=== PATIENT | male | born 1990 | race African-American/Black ===

== ENCOUNTER 2016-08-26 14:26 | Observation (INO) | payer SELFPAY ==
[~2016-08-26] VITALS: Ht 172.7 cm; Wt 73.0 kg
[2016-08-26] MEDS ORDERED: SODIUM CHLOR 0.9% 1000 ML INJ 1,000 ML IV SCH (14:35)
[2016-08-26] MEDS ORDERED: ONDANSETRON HCL 4 MG/2 ML VIAL ONE (14:35)
[2016-08-26] MEDS ORDERED: ONDANSETRON HCL 4 MG/2 ML VIAL IVP ONE (14:45)
[2016-08-26 15:05] VITALS: BP 121/65; PULSE 77; RESP 12; O2SAT 98
--- NOTE | 2016-08-26 15:09 | PD ---
HPI Chief Complaint: OD/ Ingestion Time Seen by Provider: 15:04 Travel History International Travel<30 days: No Contact w/Intl Traveler<30days: No Traveled to known affect area: No History of Present Illness HPI 25-year-old male that presents to the ED for evaluation of possible OD. Patient has a chronic history of bipolar disorder. Per patient and Moy act patient apparently got on an argument with father which escalated to the point where he did not want to leave anymore and he took 10 sertraline, 10 trazodone and 10 tramadol to end his life. Per patient he does have a history of bipolar disorder and has a history depression with suicidal attempts in the past. Per patient she is compliant with his medications. Per patient although he feels right now is feeling dizzy and has some nausea and vomiting. Patient was vomiting when I went to evaluate the patient. Patient has never been here in this facility before for something like this. He denies any alcohol or any other drug abuse. He states having suicidal ideation and depression. Denies any chest pain or shortness of breath. Ingestion occurred someone around 10- 11. He denies any allergies to medication. Police was contacted and they Moy acted the patient. Symptoms are severe. Nothing makes the symptoms better or worse. PFSH Social History Alcohol Use: Yes Tobacco Use: Yes Substance Use: Yes Allergies-Medications (Allergen,Severity, Reaction): Coded Allergies: No Known Allergies (Unverified , 08/26/16) Reported Meds & Prescriptions Reported Meds & Active Scripts Active No Active Prescriptions or Reported Medications Review of Systems General / Constitutional: No: Fever, Chills, Weight Gain, Weight Loss, Other Eyes: No: Diploplia, Blurred Vision, Photophobia, Drainage, Redness, Foreign Body Sensation, Pain, Tearing, Blind Spots, Visual changes, Blindness, Other HENT: No: Headaches, Vertigo, Lightheadedness, Sore Throat, Rhinitis, Rhinorrhea, Congestion, Nosebleed, Neck Stiffness, Neck Pain, Masses, Gingival Bleeding, Dental Difficulties, Ear Discharge, Earache, Other Cardiovascular: No: Chest Pain or Discomfort, Palpitations, Irregular Rhythm, Tachycardia, Diaphoresis, Syncope, Dyspnea on exertion, Varicosities, Edema, Cyanosis, Varicosities, Phlebitis, Claudication, Other Respiratory: No: Cough, Shortness of Breath, Wheezing, Sneezing, Orthopnea, Hemoptysis, Stridor, Night Sweats, Pleuritic Pain, Other Gastrointestinal: Positive: Nausea, Vomiting, No: Diarrhea, Abdominal Pain, Hematemesis, Hematochezia, Constipation, Changes in Bowel Habits, Indigestion, Dysphagia, Loss of Appetite, Other Genitourinary: No: Urgency, Frequency, Dysuria, Nocturia, Hematuria, Decreased Urinary Output, Oliguria, Hesitancy, Dribbling, Incontinence, Pelvic Pain, Flank Pain, Dyspareunia, Discharge, Dysmenorrhea, Menorrhagia, Metorrhagia, Vaginal Bleeding, Other Musculoskeletal: No: Myalgias, Arthralgias, Limited ROM, Weakness, Cramping, Edema, Pain, Atrophy, Other Skin: No Rash, No Itching, No Dryness, No Lumps, No Hives, No Change in Pigmentation, No Change in nails, No Alopecia, No Lesions, No Breast Lumps, No Breast Tenderness, No Breast Swelling, No Other Neurologic: Positive: Dizziness, No: Weakness, Syncope, Focal Abnormalities, Coordination Problem, Tremor, Ataxia, Headache, Change in Mentation, Slurred Speech, Paresthesia, Incontinence, Seizures, Sensory Disturbance, Other Psychiatric: Positive: Anxiety, Depression, Suicidal Ideations, Mood Disorder, Substance Abuse, No: Disorder of Thought, Homicidal Ideation, Other Endocrine: No: Heat Intolerance, Cold Intolerance, Polyuria, Polydipsia, Other Hematologic/Lymphatic: No: Easy Bruising, Lymph Node Enlargement, Other Physical Exam Narrative GENERAL: SKIN: Warm and dry. HEAD: Atraumatic. Normocephalic. EYES: Pupils equal and round. No scleral icterus. No injection or drainage. ENT: No nasal bleeding or discharge. Mucous membranes pink and moist. Tongue is midline. No uvula deviation. NECK: Trachea midline. No JVD. CARDIOVASCULAR: Regular rate and rhythm. No murmurs, S3, S4. RESPIRATORY: No accessory muscle use. Clear to auscultation. Breath sounds equal bilaterally. GASTROINTESTINAL: Abdomen soft, non-tender, nondistended. Hepatic and splenic margins not palpable. MUSCULOSKELETAL: Extremities without clubbing, cyanosis, or edema. No obvious deformities. Full range of motion of the upper and lower extremities bilaterally. 2+ pulses bilaterally. NEUROLOGICAL: Awake and alert. No obvious cranial nerve deficits. Motor grossly within normal limits. Five out of 5 muscle strength in the arms and legs. Normal speech. PSYCHIATRIC: Anxious and depressed mood and affect; insight and judgment questionable Data Data Last Documented VS Vital Signs Date Time Temp Pulse Resp B/P Pulse Ox O2 Delivery O2 Flow Rate FiO2 08/26/16 16:00 87 16 126/65 98 Nasal Cannula 2 08/26/16 15:10 98.5 Orders Ondansetron Inj (Zofran Inj) (08/26/16 14:35) Electrocardiogram (08/26/16 14:35) Complete Blood Count With Diff (08/26/16 14:35) Comprehensive Metabolic Panel (08/26/16 14:35) Prothrombin Time / Inr (Pt) (08/26/16 14:35) Act Partial Throm Time (Ptt) (08/26/16 14:35) Urinalysis - C+S If Indicated (08/26/16 14:35) Blood Glucose (08/26/16 14:35) Iv Access Insert/Monitor (08/26/16 14:35) Ecg Monitoring (08/26/16 14:35) Oximetry (08/26/16 14:35) Ondansetron Inj (Zofran Inj) (08/26/16 14:45) Call Poison Control (08/26/16 14:35) Drug Screen, Random Urine (08/26/16 14:35) Alcohol (Ethanol) (08/26/16 14:35) Salicylates (Aspirin) (08/26/16 14:35) Tylenol (Acetaminophen) (08/26/16 14:35) Sodium Chlor 0.9% 1000 Ml Inj (Ns 1000 M (08/26/16 14:35) ^ Sitter (08/26/16 15:02) Electrocardiogram (08/26/16 16:40) Urine Culture (08/26/16 16:55) Labs Laboratory Tests Test 08/26/16 08/26/16 15:00 16:55 White Blood Count 10.1 TH/MM3 Red Blood Count 6.56 MIL/MM3 Hemoglobin 15.2 GM/DL Hematocrit 46.5 % Mean Corpuscular Volume 70.8 FL Mean Corpuscular Hemoglobin 23.1 PG Mean Corpuscular Hemoglobin 32.7 % Concent Red Cell Distribution Width 14.3 % Platelet Count 94 TH/MM3 Mean Platelet Volume 10.7 FL Neutrophils (%) (Auto) 80.5 % Lymphocytes (%) (Auto) 12.2 % Monocytes (%) (Auto) 6.8 % Eosinophils (%) (Auto) 0.0 % Basophils (%) (Auto) 0.5 % Neutrophils # (Auto) 8.1 TH/MM3 Lymphocytes # (Auto) 1.2 TH/MM3 Monocytes # (Auto) 0.7 TH/MM3 Eosinophils # (Auto) 0.0 TH/MM3 Basophils # (Auto) 0.0 TH/MM3 CBC Comment AUTO DIFF Differential Comment AUTO DIFF CONFIRMED Platelet Estimate LOW Platelet Morphology Comment GIANT Tear Drop Cells 1+ Ovalocytes 1+ Prothrombin Time 11.6 SEC Prothromb Time International 1.0 RATIO Ratio Activated Partial 22.6 SEC Thromboplast Time Sodium Level 137 MEQ/L Potassium Level 3.8 MEQ/L Chloride Level 101 MEQ/L Carbon Dioxide Level 21.8 MEQ/L Anion Gap 14 MEQ/L Blood Urea Nitrogen 15 MG/DL Creatinine 1.23 MG/DL Estimat Glomerular Filtration 73 ML/MIN Rate Random Glucose 108 MG/DL Calcium Level 9.8 MG/DL Total Bilirubin 3.5 MG/DL Aspartate Amino Transf 29 U/L (AST/SGOT) Alanine Aminotransferase 22 U/L (ALT/SGPT) Alkaline Phosphatase 69 U/L Total Protein 8.6 GM/DL Albumin 5.0 GM/DL Salicylates Level LESS THAN 1.7 MG/DL Acetaminophen Level LESS THAN 2.0 MCG/ML Ethyl Alcohol Level LESS THAN 3 MG/DL Urine Color YELLOW Urine Turbidity CLEAR Urine pH 6.0 Urine Specific [place] 1.031 Urine Protein 30 mg/dL Urine Glucose (UA) NEG mg/dL Urine Ketones 80 mg/dL Urine Occult Blood NEG Urine Nitrite NEG Urine Bilirubin SMALL Urine Urobilinogen 2.0 MG/DL Urine Leukocyte Esterase SMALL Urine WBC 10 /hpf Urine Squamous Epithelial 1 /hpf Cells Urine Hyaline Casts 2 /lpf Urine Mucus FEW /lpf Microscopic Urinalysis Comment CULTURE INDICATED Urine Opiates Screen NEG Urine Barbiturates Screen NEG Urine Amphetamines Screen NEG Urine Benzodiazepines Screen NEG Urine Cocaine Screen NEG Urine Cannabinoids Screen POS MDM Medical Decision Making Medical Screen Exam Complete: Yes Emergency Medical Condition: Yes Medical Record Reviewed: Yes Interpretation(s) CBC & BMP Diagram 08/26/16 15:00 LFTs within normal limits. EKG shows sinus rhythm with no sign of acute ischemia or arrhythmia read by me and attending. Differential Diagnosis Depression versus suicidal ideation versus anxiety versus adjustment disorder versus mood disorder versus bipolar disorder versus schizophrenia versus paranoid disorder versus psychosis versus substance abuse versus alcohol abuse versus alcohol induced psychosis versus homicidality addition versus cutting versus personality disorder versus overdose Narrative Course 25-year-old male that presents to the ED for evaluation of overdose and Moy act. Patient was properly examined and was found to have signs and symptoms consistent with overdose. Patient to 10 tramadol, 10 trazodone, 10 sertraline at the same time an attempt to end his life. Patient was Moy acted by police. At this time labs were ordered. Overdose protocol was started. ED nurse spoke with poison control who recommends at least observation for the next 4-6 hours for seizure monitoring. Case was discussed in my attending Dr. Cochran who agrees with plan and recommends admission for AND psych evaluation will admitted. Patient was given IV fluids and antiemetics here as he was vomiting here in the ED. Sitter was ordered. Labs showed no sign of acute disease. Case was discussed in my attending who agrees admission to medicine as patient will require at least 6 hours of monitoring and cannot be medically clear until then. Case was discussed with Dr. Kwon over the phone who agrees to admission. Procedures EKG Prior to Arrival: No Diagnosis Primary Impression: Drug overdose, multiple drugs Qualified Code: T50.902A - Drug overdose, multiple drugs, intentional self- harm, initial encounter Additional Impressions: Bipolar 1 disorder Suicidal ideation Admitting Information Admitting Physician Requests: Observation Scripts No Active Prescriptions or Reported Meds Peter Gutierrez Aug 26, 2016 15:09
[2016-08-26 15:10] VITALS: TEMP 98.5
[2016-08-26 15:18] LABS: AUTOMATED NEUTROPHIL # 8.1 TH/MM3 (1.8-7.7); BASOPHIL % 0.5 % (0.0-2.0); HEMATOCRIT 46.5 % (39.0-51.0); LYMPH % 12.2 % (9.0-44.0); LYMPHOCYTE # 1.2 TH/MM3 (1.0-4.8); MEAN CELL VOLUME 70.8 FL (80.0-100.0); MEAN CORPUSCULAR HEMOGLOBIN 23.1 PG (27.0-34.0); MEAN CORPUSCULAR HGB CONC 32.7 % (32.0-36.0); MONO % 6.8 % (0.0-8.0); NEUT % 80.5 % (16.0-70.0); PLATELET COUNT 94 TH/MM3 (150-450); RED BLOOD COUNT 6.56 MIL/MM3 (4.50-5.90); RED CELL DISTRIBUTION WIDTH 14.3 % (11.6-17.2); WHITE BLOOD COUNT 10.1 TH/MM3 (4.0-11.0)
[2016-08-26 15:22] LABS: APTT (PATIENT) 22.6 SEC (24.3-30.1); PROTHROMBIN TIME - PATIENT 11.6 SEC (9.8-11.6)
[2016-08-26 15:23] LABS: HEMO FLAGS AUTO DIFF
[2016-08-26 15:39] LABS: ALKALINE PHOSPHATASE 69 U/L (45-117); ALT (GPT) 22 U/L (12-78); TOTAL BILIRUBIN ADULT 3.5 MG/DL (0.2-1.0)
[2016-08-26 15:44] LABS: ANION GAP 14 MEQ/L (5-15); AST (GOT) 29 U/L (15-37); BICARBONATE 21.8 MEQ/L (21.0-32.0); BLOOD UREA NITROGEN 15 MG/DL (7-18); CHLORIDE 101 MEQ/L (98-107); GLOMERULAR FILTRATION RATE 73 ML/MIN (>89); SODIUM (NA) 137 MEQ/L (136-145)
[2016-08-26 15:45] LABS: ACETAMINOPHEN LESS THAN 2.0 MCG/ML (10.0-30.0); POTASSIUM 3.8 MEQ/L (3.5-5.1)
[2016-08-26 16:00] VITALS: BP 126/65; PULSE 87; RESP 16; O2SAT 98
[2016-08-26 16:09] LABS: OVALOCYTES 1+ (NORMAL); PLATELET ESTIMATE SMEAR LOW (NORMAL); PLATELET MORPHOLOGY GIANT (NORMAL); SCAN/DIFF AUTO DIFF CONFIRMED; TEARDROP RBCS 1+ (NORMAL)
[2016-08-26 17:15] LABS: BLOOD, URINE NEG (NEG); COMMENT (UR) CULTURE INDICATED; CULTURE IF INDICATED CULTURE INDICATED; GLUCOSE,URINE NEG (NEG); HYALINE CAST, URINE 2 /lpf (RARE); KETONE, URINE 80 mg/dL (NEG); MUCUS URINE FEW /lpf (OCC); NITRITE,URINE NEG (NEG); SQUAMOUS EPITHELIAL CELL URINE 1 /hpf (0-5); URINE COLOR YELLOW (YELLW/STRAW)
[2016-08-26 17:20] LABS: AMPHETAMINE, URINE NEG (NEG); BARBITURATES, URINE NEG (NEG); COCAINE, URINE NEG (NEG)
--- NOTE | 2016-08-26 17:42 | HHI.HP ---
[facility] Service [facility] Primary Care Physician No Primary Care Physician Admission Diagnosis overdose, Bipolar, BA Diagnoses: Chief Complaint: Drug overdose Travel History International Travel<30 Days: No Contact w/Intl Traveler <30 Da: No Traveled to Known Affected Are: No History of Present Illness This is a pleasant 25 y/o male who came to ER for evaluation of possible drug overdose, he has chronic Bipolar disorder, brought in as Moy act apparently he had an argument with his father then he took 10 sertraline, 10 trazodone and 10 tramadol to end his life. Per patient he does have a history of bipolar disorder and has a history depression with suicidal attempts in the past. Per patient she is compliant with his medications. he felt dizzy, nausea and vomit, ingestion occurred around 10 to 11 am, seen in his bedroom in Emergency room, stable no distress with sitter, as recommended by Poison control he will need to be observed for six hours and consult psychiatry. Past Family Social History Past Medical History Bipolar disorder Past Surgical History No Past Surgical History Reported Medications Reported Meds & Active Scripts Active No Active Prescriptions or Reported Medications Allergies: Coded Allergies: No Known Allergies (Unverified , 08/26/16) Active Ordered Medications Current Medications Medications (Trade) Dose Ordered Sig/Madi Route Start Time Stop Time Status Last Admin (NS 1000 ml Inj) 1,000 ml @ 125 mls/hr Q8H IV 08/26/16 18:00 08/26/16 18:30 (NS Flush) 2 ml UNSCH PRN FLUSH 08/26/16 17:45 (NS Flush) 2 ml BID FLUSH 08/26/16 21:00 (Tylenol) 650 mg Q4H PRN PO 08/26/16 17:45 (Zofran Inj) 4 mg Q6H PRN IVP 08/26/16 17:45 (Dulcolax Supp) 10 mg DAILY PRN [place] 08/26/16 17:45 (Narcan Inj) 0.4 mg UNSCH PRN IV 08/26/16 17:45 Family History Father with hypertension Social History lives with his Father and Father's Girlfriend, Abuse Tobacco, Alcohol and Substance abuse Physical Exam Vital Signs Vital Signs Date Time Temp Pulse Resp B/P Pulse Ox O2 Delivery O2 Flow Rate FiO2 08/26/16 16:00 87 16 126/65 98 Nasal Cannula 2 08/26/16 15:10 98.5 08/26/16 15:05 77 12 121/65 98 Nasal Cannula 2 Physical Exam GENERAL: SKIN: Warm and dry. HEAD: Atraumatic. Normocephalic. EYES: Pupils equal and round. No scleral icterus. No injection or drainage. ENT: No nasal bleeding or discharge. Mucous membranes pink and moist. Tongue is midline. No uvula deviation. NECK: Trachea midline. No JVD. CARDIOVASCULAR: Regular rate and rhythm. No murmurs, S3, S4. RESPIRATORY: No accessory muscle use. Clear to auscultation. Breath sounds equal bilaterally. GASTROINTESTINAL: Abdomen soft, non-tender, nondistended. Hepatic and splenic margins not palpable. MUSCULOSKELETAL: Extremities without clubbing, cyanosis, or edema. No obvious deformities. Full range of motion of the upper and lower extremities bilaterally. 2+ pulses bilaterally. NEUROLOGICAL: Awake and alert. No obvious cranial nerve deficits. Motor grossly within normal limits. Five out of 5 muscle strength in the arms and legs. Normal speech. PSYCHIATRIC: Anxious and depressed mood and affect; insight and judgment questionable Laboratory Laboratory Tests Test 08/26/16 08/26/16 15:00 16:55 White Blood Count 10.1 Red Blood Count 6.56 Hemoglobin 15.2 Hematocrit 46.5 Mean Corpuscular Volume 70.8 Mean Corpuscular Hemoglobin 23.1 Mean Corpuscular Hemoglobin 32.7 Concent Red Cell Distribution Width 14.3 Platelet Count 94 Mean Platelet Volume 10.7 Neutrophils (%) (Auto) 80.5 Lymphocytes (%) (Auto) 12.2 Monocytes (%) (Auto) 6.8 Eosinophils (%) (Auto) 0.0 Basophils (%) (Auto) 0.5 Neutrophils # (Auto) 8.1 Lymphocytes # (Auto) 1.2 Monocytes # (Auto) 0.7 Eosinophils # (Auto) 0.0 Basophils # (Auto) 0.0 CBC Comment AUTO DIFF Differential Comment AUTO DIFF CONFIRMED Platelet Estimate LOW Platelet Morphology Comment GIANT Tear Drop Cells 1+ Ovalocytes 1+ Prothrombin Time 11.6 Prothromb Time International 1.0 Ratio Activated Partial 22.6 Thromboplast Time Sodium Level 137 Potassium Level 3.8 Chloride Level 101 Carbon Dioxide Level 21.8 Anion Gap 14 Blood Urea Nitrogen 15 Creatinine 1.23 Estimat Glomerular Filtration 73 Rate Random Glucose 108 Calcium Level 9.8 Total Bilirubin 3.5 Aspartate Amino Transf 29 (AST/SGOT) Alanine Aminotransferase 22 (ALT/SGPT) Alkaline Phosphatase 69 Total Protein 8.6 Albumin 5.0 Salicylates Level LESS THAN 1.7 Acetaminophen Level LESS THAN 2.0 Ethyl Alcohol Level LESS THAN 3 Urine Color YELLOW Urine Turbidity CLEAR Urine pH 6.0 Urine Specific [place] 1.031 Urine Protein 30 Urine Glucose (UA) NEG Urine Ketones 80 Urine Occult Blood NEG Urine Nitrite NEG Urine Bilirubin SMALL Urine Urobilinogen 2.0 Urine Leukocyte Esterase SMALL Urine WBC 10 Urine Squamous Epithelial 1 Cells Urine Hyaline Casts 2 Urine Mucus FEW Microscopic Urinalysis Comment CULTURE INDICATED Urine Opiates Screen NEG Urine Barbiturates Screen NEG Urine Amphetamines Screen NEG Urine Benzodiazepines Screen NEG Urine Cocaine Screen NEG Urine Cannabinoids Screen POS Date/Time Procedure Status Source Growth 08/26/16 16:55 Urine Culture Received Urine Clean Catch Pending Result Diagram: 08/26/16 1500 08/26/16 1500 Imaging No Imaging studies performed. Assessment and Plan Assessment and Plan Intentional Drug Overdose, LFTs within normal limits, ECG sinus rhythm with no sign of acute ischemia or arrhythmia Patient to 10 tramadol, 10 trazodone, 10 sertraline at the same time an attempt to end his life. Patient was Moy acted by police. poison control who recommends at least observation for the next 4-6 hours for seizure monitoring. consult psychiatry specialist. DVT prophylaxis with SCDs. Code Status Full code Discussed Condition With Patient and Emergency physician Physician Certification 2 Midnight Certification Type: Admission for Inpatient Services Order for Inpatient Services The services are ordered in accordance with Medicare regulations or non- Medicare payer requirements, as applicable. In the case of services not specified as inpatient-only, they are appropriately provided as inpatient services in accordance with the 2-midnight benchmark. Estimated LOS (days): 1 days is the estimated time the patient will need to remain in the hospital, assuming treatment plan goals are met and no additional complications. Post-Hospital Plan: Other acute care hospital Juwan Lafleur MD Aug 26, 2016 17:42
[2016-08-26] MEDS ORDERED: BISACODYL 10 MG SUPP PR PRN (17:45)
[2016-08-26] MEDS ORDERED: ONDANSETRON HCL 4 MG/2 ML VIAL IVP PRN (17:45)
[2016-08-26] MEDS ORDERED: SODIUM CHLORIDE 0.9% FLUSH 5 ML FLUSH FLUSH PRN (17:45)
[2016-08-26] MEDS ORDERED: ACETAMINOPHEN 325 MG TAB PO PRN (17:45)
[2016-08-26] MEDS ORDERED: NALOXONE HCL 0.4 MG/ML AMP IV PRN (17:45)
--- NOTE | 2016-08-26 17:53 | PD ---
Physical Exam Date Seen by Provider: Aug 26, 2016 Time Seen by Provider: 15:30 Narrative I, Dr. Covarrubias, have reviewed the advance practice practitioner's documentation and am in agreement, met with the patient face to face, made the diagnosis, and the medical decision making was done by me. *My assessment and Findings: Patient seen and evaluated with PA, please see previous notes for further details. Patient is here because he had taken an intentional overdose of his psychiatric medication and his father's blood pressure medication. He states he started taking the medications at 1 to 1:30 PM. He states that he is now nauseous, vomiting, not feeling well. On initial evaluation, he appears agitated and restless, diaphoretic, pupils are small, poorly reactive to light bilaterally. His abdomen is soft and benign, nontender to palpation. No focal neurological deficit identified. EKG shows NSR, no ST elevation or depression, and no arrhythmias. No significant T-wave inversions. No QT prolongation or QRS prolongation. Laboratory Tests Test 08/26/16 08/26/16 15:00 16:55 Red Blood Count 6.56 MIL/MM3 (4.50-5.90) Mean Corpuscular Volume 70.8 FL (80.0-100.0) Mean Corpuscular Hemoglobin 23.1 PG (27.0-34.0) Platelet Count 94 TH/MM3 (150-450) Neutrophils (%) (Auto) 80.5 % (16.0-70.0) Neutrophils # (Auto) 8.1 TH/MM3 (1.8-7.7) Platelet Estimate LOW (NORMAL) Platelet Morphology Comment GIANT (NORMAL) Tear Drop Cells 1+ (NORMAL) Ovalocytes 1+ (NORMAL) Activated Partial 22.6 SEC Thromboplast Time (24.3-30.1) Estimat Glomerular Filtration 73 ML/MIN (>89) Rate Random Glucose 108 MG/DL (74-106) Total Bilirubin 3.5 MG/DL (0.2-1.0) Total Protein 8.6 GM/DL (6.4-8.2) Salicylates Level LESS THAN 1.7 MG/DL (2.8-20.0) Acetaminophen Level LESS THAN 2.0 MCG/ML (10.0-30.0) Urine Protein 30 mg/dL (NEG-TRACE) Urine Ketones 80 mg/dL (NEG) Urine Bilirubin SMALL (NEG) Urine Leukocyte Esterase SMALL (NEG) Urine WBC 10 /hpf (0-5) Urine Mucus FEW /lpf (OCC) Urine Cannabinoids Screen POS (NEG) Patient was given IV fluids in the ER anti-medics in the ER. Case had been discussed with poison control center and they recommended seizure precautions and observation and reevaluation. At this point, lab work returns showing that he also has cannabis in his system. Vital signs remained stable in the ER. My plan would be to admit the patient for further observation. Data Data Last Documented VS Vital Signs Date Time Temp Pulse Resp B/P Pulse Ox O2 Delivery O2 Flow Rate FiO2 08/26/16 16:00 87 16 126/65 98 Nasal Cannula 2 08/26/16 15:10 98.5 Orders Ondansetron Inj (Zofran Inj) (08/26/16 14:35) Electrocardiogram (08/26/16 14:35) Complete Blood Count With Diff (08/26/16 14:35) Comprehensive Metabolic Panel (08/26/16 14:35) Prothrombin Time / Inr (Pt) (08/26/16 14:35) Act Partial Throm Time (Ptt) (08/26/16 14:35) Urinalysis - C+S If Indicated (08/26/16 14:35) Blood Glucose (08/26/16 14:35) Iv Access Insert/Monitor (08/26/16 14:35) Ecg Monitoring (08/26/16 14:35) Oximetry (08/26/16 14:35) Ondansetron Inj (Zofran Inj) (08/26/16 14:45) Call Poison Control (08/26/16 14:35) Drug Screen, Random Urine (08/26/16 14:35) Alcohol (Ethanol) (08/26/16 14:35) Salicylates (Aspirin) (08/26/16 14:35) Tylenol (Acetaminophen) (08/26/16 14:35) Sodium Chlor 0.9% 1000 Ml Inj (Ns 1000 M (08/26/16 14:35) ^ Sitter (08/26/16 15:02) Electrocardiogram (08/26/16 16:40) Urine Culture (08/26/16 16:55) Admit Order (Ed Use Only) (08/26/16 17:27) Labs Laboratory Tests Test 08/26/16 08/26/16 15:00 16:55 White Blood Count 10.1 TH/MM3 Red Blood Count 6.56 MIL/MM3 Hemoglobin 15.2 GM/DL Hematocrit 46.5 % Mean Corpuscular Volume 70.8 FL Mean Corpuscular Hemoglobin 23.1 PG Mean Corpuscular Hemoglobin 32.7 % Concent Red Cell Distribution Width 14.3 % Platelet Count 94 TH/MM3 Mean Platelet Volume 10.7 FL Neutrophils (%) (Auto) 80.5 % Lymphocytes (%) (Auto) 12.2 % Monocytes (%) (Auto) 6.8 % Eosinophils (%) (Auto) 0.0 % Basophils (%) (Auto) 0.5 % Neutrophils # (Auto) 8.1 TH/MM3 Lymphocytes # (Auto) 1.2 TH/MM3 Monocytes # (Auto) 0.7 TH/MM3 Eosinophils # (Auto) 0.0 TH/MM3 Basophils # (Auto) 0.0 TH/MM3 CBC Comment AUTO DIFF Differential Comment AUTO DIFF CONFIRMED Platelet Estimate LOW Platelet Morphology Comment GIANT Tear Drop Cells 1+ Ovalocytes 1+ Prothrombin Time 11.6 SEC Prothromb Time International 1.0 RATIO Ratio Activated Partial 22.6 SEC Thromboplast Time Sodium Level 137 MEQ/L Potassium Level 3.8 MEQ/L Chloride Level 101 MEQ/L Carbon Dioxide Level 21.8 MEQ/L Anion Gap 14 MEQ/L Blood Urea Nitrogen 15 MG/DL Creatinine 1.23 MG/DL Estimat Glomerular Filtration 73 ML/MIN Rate Random Glucose 108 MG/DL Calcium Level 9.8 MG/DL Total Bilirubin 3.5 MG/DL Aspartate Amino Transf 29 U/L (AST/SGOT) Alanine Aminotransferase 22 U/L (ALT/SGPT) Alkaline Phosphatase 69 U/L Total Protein 8.6 GM/DL Albumin 5.0 GM/DL Salicylates Level LESS THAN 1.7 MG/DL Acetaminophen Level LESS THAN 2.0 MCG/ML Ethyl Alcohol Level LESS THAN 3 MG/DL Urine Color YELLOW Urine Turbidity CLEAR Urine pH 6.0 Urine Specific [place] 1.031 Urine Protein 30 mg/dL Urine Glucose (UA) NEG mg/dL Urine Ketones 80 mg/dL Urine Occult Blood NEG Urine Nitrite NEG Urine Bilirubin SMALL Urine Urobilinogen 2.0 MG/DL Urine Leukocyte Esterase SMALL Urine WBC 10 /hpf Urine Squamous Epithelial 1 /hpf Cells Urine Hyaline Casts 2 /lpf Urine Mucus FEW /lpf Microscopic Urinalysis Comment CULTURE INDICATED Urine Opiates Screen NEG Urine Barbiturates Screen NEG Urine Amphetamines Screen NEG Urine Benzodiazepines Screen NEG Urine Cocaine Screen NEG Urine Cannabinoids Screen POS MDM Medical Record Reviewed: Yes Supervised Visit with CARLA: Yes Diagnosis Primary Impression: Drug overdose, multiple drugs Qualified Code: T50.902A - Drug overdose, multiple drugs, intentional self- harm, initial encounter Additional Impressions: Bipolar 1 disorder Suicidal ideation Admitting Information Admitting Physician Requests: Admit Scripts No Active Prescriptions or Reported Meds Elizabeth Covarrubias MD Aug 26, 2016 17:53
[2016-08-26 18:30] VITALS: BP 117/70; PULSE 77; RESP 14; O2SAT 100
[2016-08-26] MEDS: SODIUM CHLOR 0.9% 1000 ML INJ 1,000 ML IV SCH (18:30)
[2016-08-26 19:09] VITALS: BP 125/75; PULSE 66; RESP 18; O2SAT 99
[2016-08-26 19:19] LABS: CKMB 1.5 NG/ML (0.5-3.6)
[2016-08-26] MEDS: SODIUM CHLORIDE 0.9% FLUSH 5 ML FLUSH FLUSH SCH (21:00)
[2016-08-26 21:45] VITALS: BP 133/68; PULSE 81; RESP 16; TEMP 96.1; O2SAT 96
[2016-08-27] VITALS (8 sets, daily range): BP systolic 117–148; BP diastolic 61–82; PULSE 61–79; RESP 18–22; TEMP 96.9–98.8; O2SAT 95–98
[2016-08-27 01:04] LABS: CKMB 2.2 NG/ML (0.5-3.6)
[2016-08-27 07:08] LABS: AUTOMATED NEUTROPHIL # 5.3 TH/MM3 (1.8-7.7); BASOPHIL # 0.1 TH/MM3 (0-0.2); BASOPHIL % 0.6 % (0.0-2.0); EOSINOPHIL # 0.2 TH/MM3 (0-0.4); EOSINOPHIL % 2.2 % (0.0-4.0); HEMATOCRIT 41.2 % (39.0-51.0); LYMPHOCYTE # 2.2 TH/MM3 (1.0-4.8); MEAN CELL VOLUME 70.9 FL (80.0-100.0); MEAN CORPUSCULAR HEMOGLOBIN 23.3 PG (27.0-34.0); MEAN CORPUSCULAR HGB CONC 32.9 % (32.0-36.0); NEUT % 62.2 % (16.0-70.0); PLATELET COUNT 88 TH/MM3 (150-450); RED BLOOD COUNT 5.81 MIL/MM3 (4.50-5.90); RED CELL DISTRIBUTION WIDTH 14.2 % (11.6-17.2); WHITE BLOOD COUNT 8.5 TH/MM3 (4.0-11.0)
[2016-08-27 07:10] LABS: HEMO FLAGS AUTO DIFF
[2016-08-27 07:14] LABS: BICARBONATE 25.2 MEQ/L (21.0-32.0); POTASSIUM 3.9 MEQ/L (3.5-5.1); TOTAL BILIRUBIN ADULT 2.3 MG/DL (0.2-1.0)
[2016-08-27 07:23] LABS: CKMB 2.8 NG/ML (0.5-3.6)
--- NOTE | 2016-08-27 08:34 | HHI.PR ---
Subjective Remarks This is a pleasant 25 y/o male who came to ER for evaluation of possible drug overdose, he has chronic Bipolar disorder, brought in as Moy act apparently he had an argument with his father then he took 10 sertraline, 10 trazodone and 10 tramadol to end his life. Per patient he does have a history of bipolar disorder and has a history depression with suicidal attempts in the past. Per patient she is compliant with his medications. he felt dizzy, nausea and vomit, ingestion occurred around 10 to 11 am, seen in his bedroom in Emergency room, stable no distress with sitter, as recommended by Poison control he will need to be observed for six hours and consult psychiatry. Discussed with Psychiatry specialist Doctor Raleigh Madison the patient is stable and he removed the Moy Act and recommend to discharge patient home today. the patient is stable no Nausea, vomit or diarrhea. Objective Vital Signs Date Time Temp Pulse Resp B/P Pulse Ox O2 Delivery O2 Flow Rate FiO2 08/27/16 03:36 98.0 61 22 148/71 97 08/27/16 00:17 97.6 64 20 117/74 97 08/26/16 21:45 96.1 81 16 133/68 96 08/26/16 19:09 66 18 125/75 99 Room Air 08/26/16 18:30 77 14 117/70 100 Room Air 08/26/16 16:00 87 16 126/65 98 Nasal Cannula 2 08/26/16 15:10 98.5 08/26/16 15:05 77 12 121/65 98 Nasal Cannula 2 I/O 08/26/16 08/26/16 08/26/16 08/27/16 08/27/16 08/27/16 07:00 15:00 23:00 07:00 15:00 23:00 Intake Total 240 ml Balance 240 ml Intake Oral 240 ml Result Diagram: 08/27/16 0520 08/27/16 0520 Imaging No Imaging studies performed. Procedures No procedures performed to the patient. Other Results Laboratory Tests Test 08/26/16 08/26/16 08/27/16 15:00 16:55 05:20 Differential Comment AUTO DIFF CONFIRMED Platelet Estimate LOW Platelet Morphology Comment GIANT Tear Drop Cells 1+ Ovalocytes 1+ Prothrombin Time 11.6 SEC Prothromb Time International 1.0 RATIO Ratio Activated Partial 22.6 SEC Thromboplast Time Salicylates Level LESS THAN 1.7 MG/DL Acetaminophen Level LESS THAN 2.0 MCG/ML Ethyl Alcohol Level LESS THAN 3 MG/DL Urine Color YELLOW Urine Turbidity CLEAR Urine pH 6.0 Urine Specific [place] 1.031 Urine Protein 30 mg/dL Urine Glucose (UA) NEG mg/dL Urine Ketones 80 mg/dL Urine Occult Blood NEG Urine Nitrite NEG Urine Bilirubin SMALL Urine Urobilinogen 2.0 MG/DL Urine Leukocyte Esterase SMALL Urine WBC 10 /hpf Urine Squamous Epithelial 1 /hpf Cells Urine Hyaline Casts 2 /lpf Urine Mucus FEW /lpf Microscopic Urinalysis Comment CULTURE INDICATED Urine Opiates Screen NEG Urine Barbiturates Screen NEG Urine Amphetamines Screen NEG Urine Benzodiazepines Screen NEG Urine Cocaine Screen NEG Urine Cannabinoids Screen POS White Blood Count 8.5 TH/MM3 Red Blood Count 5.81 MIL/MM3 Hemoglobin 13.6 GM/DL Hematocrit 41.2 % Mean Corpuscular Volume 70.9 FL Mean Corpuscular Hemoglobin 23.3 PG Mean Corpuscular Hemoglobin 32.9 % Concent Red Cell Distribution Width 14.2 % Platelet Count 88 TH/MM3 Mean Platelet Volume 10.9 FL Neutrophils (%) (Auto) 62.2 % Lymphocytes (%) (Auto) 26.0 % Monocytes (%) (Auto) 9.0 % Eosinophils (%) (Auto) 2.2 % Basophils (%) (Auto) 0.6 % Neutrophils # (Auto) 5.3 TH/MM3 Lymphocytes # (Auto) 2.2 TH/MM3 Monocytes # (Auto) 0.8 TH/MM3 Eosinophils # (Auto) 0.2 TH/MM3 Basophils # (Auto) 0.1 TH/MM3 CBC Comment AUTO DIFF Sodium Level 140 MEQ/L Potassium Level 3.9 MEQ/L Chloride Level 107 MEQ/L Carbon Dioxide Level 25.2 MEQ/L Anion Gap 8 MEQ/L Blood Urea Nitrogen 10 MG/DL Creatinine 0.94 MG/DL Estimat Glomerular Filtration 121 ML/MIN Rate Random Glucose 85 MG/DL Calcium Level 8.3 MG/DL Total Bilirubin 2.3 MG/DL Direct Bilirubin 0.3 MG/DL Indirect Bilirubin 2.0 MG/DL Aspartate Amino Transf 20 U/L (AST/SGOT) Alanine Aminotransferase 18 U/L (ALT/SGPT) Alkaline Phosphatase 53 U/L Total Creatine Kinase 1063 U/L Creatine Kinase MB 2.8 NG/ML Creatine Kinase MB % 0.3 % Troponin I 0.05 NG/ML Total Protein 6.5 GM/DL Albumin 3.8 GM/DL Objective Remarks SKIN: Warm and dry. HEAD: Atraumatic. Normocephalic. EYES: Pupils equal and round. No scleral icterus. No injection or drainage. ENT: No nasal bleeding or discharge. Mucous membranes pink and moist. Tongue is midline. No uvula deviation. NECK: Trachea midline. No JVD. CARDIOVASCULAR: Regular rate and rhythm. No murmurs, S3, S4. RESPIRATORY: No accessory muscle use. Clear to auscultation. Breath sounds equal bilaterally. GASTROINTESTINAL: Abdomen soft, non-tender, nondistended. Hepatic and splenic margins not palpable. MUSCULOSKELETAL: Extremities without clubbing, cyanosis, or edema. No obvious deformities. Full range of motion of the upper and lower extremities bilaterally. 2+ pulses bilaterally. NEUROLOGICAL: Awake and alert. No obvious cranial nerve deficits. Motor grossly within normal limits. Five out of 5 muscle strength in the arms and legs. Normal speech. PSYCHIATRIC: Anxious and depressed mood and affect; insight and judgment questionable Medications and IVs Current Medications Medications (Trade) Dose Ordered Sig/Madi Route Start Time Stop Time Status Last Admin (NS 1000 ml Inj) 1,000 ml @ 125 mls/hr Q8H IV 08/26/16 18:00 08/26/16 18:30 (NS Flush) 2 ml UNSCH PRN FLUSH 08/26/16 17:45 (NS Flush) 2 ml BID FLUSH 08/26/16 21:00 (Tylenol) 650 mg Q4H PRN PO 08/26/16 17:45 (Zofran Inj) 4 mg Q6H PRN IVP 08/26/16 17:45 (Dulcolax Supp) 10 mg DAILY PRN AR 08/26/16 17:45 (Narcan Inj) 0.4 mg UNSCH PRN IV 08/26/16 17:45 A/P Assessment and Plan Intentional Drug Overdose, LFTs within normal limits, ECG sinus rhythm with no sign of acute ischemia or arrhythmia Patient to 10 tramadol, 10 trazodone, 10 sertraline at the same time an attempt to end his life. Patient was Moy acted by police. poison control who recommends at least observation for the next 4-6 hours for seizure monitoring. consult psychiatry specialist. patient stable discussed with doctor Raleigh Madison and he recommends to discharge the patient and follow with Psychiatry specialist. the patient has mild but worsening Creatinine Kinase asked for new follow up if stable will discharge home DVT prophylaxis with SCDs. Code Status Full code Discharge Planning Expected for later today or in am tomorrow Moy act removed by Psychiatry. Juwan Lafleur MD Aug 27, 2016 08:33
[2016-08-27 09:31] LABS: PLATELET ESTIMATE SMEAR LOW (NORMAL); PLATELET MORPHOLOGY ENLARGED (NORMAL); SCAN/DIFF AUTO DIFF CONFIRMED
[2016-08-27 09:32] LABS: OVALOCYTES 1+ (NORMAL)
[2016-08-27] MEDS: SODIUM CHLOR 0.9% 1000 ML INJ 1,000 ML IV SCH ×2 (13:53→18:00)
[2016-08-27] MEDS: SODIUM CHLORIDE 0.9% FLUSH 5 ML FLUSH FLUSH SCH ×2 (13:53→21:00)
--- NOTE | 2016-08-27 14:10 | EKG ---
Date Performed: 08/26/2016 Time Performed: 14:39:43 PTAGE: 25 years EKG: Sinus rhythm NORMAL ECG NO PREVIOUS TRACING DOCTOR: Pardeep Marvin Interpretating Date/Time 08/27/2016 14:08:50
--- NOTE | 2016-08-27 14:10 | EKG ---
Date Performed: 08/26/2016 Time Performed: 17:24:25 PTAGE: 25 years EKG: Sinus rhythm WITH SINUS ARRHYTHMIA NORMAL ECG Compared to PREVIOUS TRACING sinus arrhythmia is new, otherwise no significant change PREVIOUS BRUCE N08/26/2016 14.39 DOCTOR: Pardeep Marvin Interpretating Date/Time 08/27/2016 14:09:06
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
[2016-08-27 15:30] LABS: CKMB 2.3 NG/ML (0.5-3.6)
[2016-08-28 00:13] VITALS: BP 140/63; PULSE 60; RESP 21; TEMP 98.4; O2SAT 99
[2016-08-28] MEDS: SODIUM CHLOR 0.9% 1000 ML INJ 1,000 ML IV SCH ×2 (00:31→09:53)
[2016-08-28 05:13] VITALS: BP 141/60; PULSE 62; RESP 21; TEMP 98.7; O2SAT 98
[2016-08-28 07:26] VITALS: O2SAT 99
--- NOTE | 2016-08-28 08:16 | HHI.PR ---
Subjective Remarks This is a pleasant 25 y/o male who came to ER for evaluation of possible drug overdose, he has chronic Bipolar disorder, brought in as Moy act apparently he had an argument with his father then he took 10 sertraline, 10 trazodone and 10 tramadol to end his life. Per patient he does have a history of bipolar disorder and has a history depression with suicidal attempts in the past. Per patient she is compliant with his medications. he felt dizzy, nausea and vomit, ingestion occurred around 10 to 11 am, seen in his bedroom in Emergency room, stable no distress with sitter, as recommended by Poison control he will need to be observed for six hours and consult psychiatry. as discussed with Doctor Raleigh Madison the patient is ready for discharge from Psychiatry specialist standpoint, but his CK level was worsening yesterday, asked for new CK level and following, at this time patient totally asymptomatic and no nausea, vomit or diarrhea. Objective Vital Signs Date Time Temp Pulse Resp B/P Pulse Ox O2 Delivery O2 Flow Rate FiO2 08/28/16 07:26 99 21 08/28/16 05:13 98.7 62 21 141/60 98 08/28/16 00:13 98.4 60 21 140/63 99 08/27/16 20:00 97 21 08/27/16 19:26 98.8 64 18 143/66 97 08/27/16 16:00 96.9 79 18 142/82 95 08/27/16 12:00 97.7 71 18 123/61 95 08/27/16 10:58 72 I/O 08/27/16 08/27/16 08/27/16 08/28/16 08/28/16 08/28/16 07:00 15:00 23:00 07:00 15:00 23:00 Intake Total 1550 ml Output Total 150 ml Balance 1400 ml Intake Oral 750 ml IV Total 800 ml Output Urine Total 150 ml Result Diagram: 08/27/1620 08/27/16 0520 Imaging No Imaging studies performed Procedures No procedures performed to the patient. Other Results Laboratory Tests Test 08/26/16 08/26/16 08/27/16 08/27/16 15:00 16:55 05:20 14:06 Tear Drop Cells 1+ Prothrombin Time 11.6 SEC Prothromb Time International 1.0 RATIO Ratio Activated Partial 22.6 SEC Thromboplast Time Salicylates Level LESS THAN 1.7 MG/DL Acetaminophen Level LESS THAN 2.0 MCG/ML Ethyl Alcohol Level LESS THAN 3 MG/DL Urine Color YELLOW Urine Turbidity CLEAR Urine pH 6.0 Urine Specific [place] 1.031 Urine Protein 30 mg/dL Urine Glucose (UA) NEG mg/dL Urine Ketones 80 mg/dL Urine Occult Blood NEG Urine Nitrite NEG Urine Bilirubin SMALL Urine Urobilinogen 2.0 MG/DL Urine Leukocyte Esterase SMALL Urine WBC 10 /hpf Urine Squamous Epithelial 1 /hpf Cells Urine Hyaline Casts 2 /lpf Urine Mucus FEW /lpf Microscopic Urinalysis Comment CULTURE INDICATED Urine Opiates Screen NEG Urine Barbiturates Screen NEG Urine Amphetamines Screen NEG Urine Benzodiazepines Screen NEG Urine Cocaine Screen NEG Urine Cannabinoids Screen POS White Blood Count 8.5 TH/MM3 Red Blood Count 5.81 MIL/MM3 Hemoglobin 13.6 GM/DL Hematocrit 41.2 % Mean Corpuscular Volume 70.9 FL Mean Corpuscular Hemoglobin 23.3 PG Mean Corpuscular Hemoglobin 32.9 % Concent Red Cell Distribution Width 14.2 % Platelet Count 88 TH/MM3 Mean Platelet Volume 10.9 FL Neutrophils (%) (Auto) 62.2 % Lymphocytes (%) (Auto) 26.0 % Monocytes (%) (Auto) 9.0 % Eosinophils (%) (Auto) 2.2 % Basophils (%) (Auto) 0.6 % Neutrophils # (Auto) 5.3 TH/MM3 Lymphocytes # (Auto) 2.2 TH/MM3 Monocytes # (Auto) 0.8 TH/MM3 Eosinophils # (Auto) 0.2 TH/MM3 Basophils # (Auto) 0.1 TH/MM3 CBC Comment AUTO DIFF Differential Comment AUTO DIFF CONFIRMED Platelet Estimate LOW Platelet Morphology Comment ENLARGED Ovalocytes 1+ Sodium Level 140 MEQ/L Potassium Level 3.9 MEQ/L Chloride Level 107 MEQ/L Carbon Dioxide Level 25.2 MEQ/L Anion Gap 8 MEQ/L Blood Urea Nitrogen 10 MG/DL Creatinine 0.94 MG/DL Estimat Glomerular Filtration 121 ML/MIN Rate Random Glucose 85 MG/DL Calcium Level 8.3 MG/DL Total Bilirubin 2.3 MG/DL Direct Bilirubin 0.3 MG/DL Indirect Bilirubin 2.0 MG/DL Aspartate Amino Transf 20 U/L (AST/SGOT) Alanine Aminotransferase 18 U/L (ALT/SGPT) Alkaline Phosphatase 53 U/L Troponin I 0.05 NG/ML Total Protein 6.5 GM/DL Albumin 3.8 GM/DL Total Creatine Kinase 1084 U/L Creatine Kinase MB 2.3 NG/ML Creatine Kinase MB % 0.2 % Objective Remarks SKIN: Warm and dry. HEAD: Atraumatic. Normocephalic. EYES: Pupils equal and round. No scleral icterus. No injection or drainage. ENT: No nasal bleeding or discharge. Mucous membranes pink and moist. Tongue is midline. No uvula deviation. NECK: Trachea midline. No JVD. CARDIOVASCULAR: Regular rate and rhythm. No murmurs, S3, S4. RESPIRATORY: No accessory muscle use. Clear to auscultation. Breath sounds equal bilaterally. GASTROINTESTINAL: Abdomen soft, non-tender, nondistended. Hepatic and splenic margins not palpable. MUSCULOSKELETAL: Extremities without clubbing, cyanosis, or edema. No obvious deformities. Full range of motion of the upper and lower extremities bilaterally. 2+ pulses bilaterally. NEUROLOGICAL: Awake and alert. No obvious cranial nerve deficits. Motor grossly within normal limits. Five out of 5 muscle strength in the arms and legs. Normal speech. PSYCHIATRIC: Anxious and depressed mood and affect; insight and judgment questionable Medications and IVs Current Medications Medications (Trade) Dose Ordered Sig/Madi Route Start Time Stop Time Status Last Admin (NS 1000 ml Inj) 1,000 ml @ 125 mls/hr Q8H IV 08/26/16 18:00 08/28/16 00:31 (NS Flush) 2 ml UNSCH PRN FLUSH 08/26/16 17:45 (NS Flush) 2 ml BID FLUSH 08/26/16 21:00 08/27/16 13:53 (Tylenol) 650 mg Q4H PRN PO 08/26/16 17:45 (Zofran Inj) 4 mg Q6H PRN IVP 08/26/16 17:45 (Dulcolax Supp) 10 mg DAILY PRN OK 08/26/16 17:45 (Narcan Inj) 0.4 mg UNSCH PRN IV 08/26/16 17:45 A/P Assessment and Plan Intentional Drug Overdose, LFTs within normal limits, ECG sinus rhythm with no sign of acute ischemia or arrhythmia Patient to 10 tramadol, 10 trazodone, 10 sertraline at the same time an attempt to end his life. Patient was Moy acted by police. poison control who recommends at least observation for the next 4-6 hours for seizure monitoring. consult psychiatry specialist. patient stable discussed with doctor Raleigh Madison and he recommends to discharge the patient and follow with Psychiatry specialist. asked for new creatinine Kinase if trending down okay to discharge Home now. DVT prophylaxis with SCDs. Code Status Full code Discharge Planning Expected for later today Moy act removed by Psychiatry. Juwan Lafleur MD Aug 28, 2016 08:16
[2016-08-28 08:17] VITALS: BP 129/64; PULSE 64; RESP 19; TEMP 98.6; O2SAT 96
[2016-08-28] MEDS: SODIUM CHLORIDE 0.9% FLUSH 5 ML FLUSH FLUSH SCH (09:00)
[2016-08-28 11:33] VITALS: BP 132/66; PULSE 64; RESP 20; TEMP 97.8; O2SAT 98
[2016-08-28 13:54] LABS: CREATINE KINASE 598 U/L (39-308)
--- NOTE | 2016-08-28 14:23 | HHI.DS ---
Discharge Summary Admission Date Aug 26, 2016 at 17:28 Discharge Date: Aug 28, 2016 Admitting Diagnosis overdose, Bipolar, BA (1) Suicidal ideation ICD Code: R45.851 Diagnosis: Principal (2) Bipolar 1 disorder ICD Code: F31.9 Diagnosis: Principal (3) Drug overdose, multiple drugs ICD Code: T50.901A Diagnosis: Principal Procedures No procedures performed Brief History - From Admission This is a pleasant 25 y/o male who came to ER for evaluation of possible drug overdose, he has chronic Bipolar disorder, brought in as Moy act apparently he had an argument with his father then he took 10 sertraline, 10 trazodone and 10 tramadol to end his life. Per patient he does have a history of bipolar disorder and has a history depression with suicidal attempts in the past. Per patient she is compliant with his medications. he felt dizzy, nausea and vomit, ingestion occurred around 10 to 11 am, seen in his bedroom in Emergency room, stable no distress with sitter, as recommended by Poison control he will need to be observed for six hours and consult psychiatry. CBC/BMP: 08/27/16 0520 08/27/16 0520 Significant Findings Laboratory Tests Test 08/26/16 08/26/16 08/26/16 08/26/16 15:00 16:55 18:35 23:50 Red Blood Count 6.56 MIL/MM3 (4.50-5.90) Mean Corpuscular Volume 70.8 FL (80.0-100.0) Mean Corpuscular Hemoglobin 23.1 PG (27.0-34.0) Platelet Count 94 TH/MM3 (150-450) Neutrophils (%) (Auto) 80.5 % (16.0-70.0) Neutrophils # (Auto) 8.1 TH/MM3 (1.8-7.7) Platelet Estimate LOW (NORMAL) Platelet Morphology Comment GIANT (NORMAL) Tear Drop Cells 1+ (NORMAL) Ovalocytes 1+ (NORMAL) Activated Partial 22.6 SEC Thromboplast Time (24.3-30.1) Estimat Glomerular Filtration 73 ML/MIN (>89) Rate Random Glucose 108 MG/DL (74-106) Total Bilirubin 3.5 MG/DL (0.2-1.0) Total Protein 8.6 GM/DL (6.4-8.2) Salicylates Level LESS THAN 1.7 MG/DL (2.8-20.0) Acetaminophen Level LESS THAN 2.0 MCG/ML (10.0-30.0) Urine Protein 30 mg/dL (NEG-TRACE) Urine Ketones 80 mg/dL (NEG) Urine Bilirubin SMALL (NEG) Urine Leukocyte Esterase SMALL (NEG) Urine WBC 10 /hpf (0-5) Urine Mucus FEW /lpf (OCC) Urine Cannabinoids Screen POS (NEG) Total Creatine Kinase 504 U/L 920 U/L (39-308) (39-308) Troponin I 0.07 NG/ML 0.07 NG/ML (0.02-0.05) (0.02-0.05) Test 08/27/16 08/27/16 08/28/16 05:20 14:06 13:13 Mean Corpuscular Volume 70.9 FL (80.0-100.0) Mean Corpuscular Hemoglobin 23.3 PG (27.0-34.0) Platelet Count 88 TH/MM3 (150-450) Monocytes (%) (Auto) 9.0 % (0.0-8.0) Platelet Estimate LOW (NORMAL) Platelet Morphology Comment ENLARGED (NORMAL) Ovalocytes 1+ (NORMAL) Calcium Level 8.3 MG/DL (8.5-10.1) Total Bilirubin 2.3 MG/DL (0.2-1.0) Direct Bilirubin 0.3 MG/DL (0.0-0.2) Indirect Bilirubin 2.0 MG/DL (0.0-0.8) Total Creatine Kinase 1063 U/L 1084 U/L 598 U/L (39-308) (39-308) (39-308) Imaging No Imaging studies performed PE at Discharge SKIN: Warm and dry. HEAD: Atraumatic. Normocephalic. EYES: Pupils equal and round. No scleral icterus. No injection or drainage. ENT: No nasal bleeding or discharge. Mucous membranes pink and moist. Tongue is midline. No uvula deviation. NECK: Trachea midline. No JVD. CARDIOVASCULAR: Regular rate and rhythm. No murmurs, S3, S4. RESPIRATORY: No accessory muscle use. Clear to auscultation. Breath sounds equal bilaterally. GASTROINTESTINAL: Abdomen soft, non-tender, nondistended. Hepatic and splenic margins not palpable. MUSCULOSKELETAL: Extremities without clubbing, cyanosis, or edema. No obvious deformities. Full range of motion of the upper and lower extremities bilaterally. 2+ pulses bilaterally. NEUROLOGICAL: Awake and alert. No obvious cranial nerve deficits. Motor grossly within normal limits. Five out of 5 muscle strength in the arms and legs. Normal speech. PSYCHIATRIC: Anxious and depressed mood and affect; insight and judgment questionable Hospital Course This is a pleasant 25 y/o male who came to ER for evaluation of possible drug overdose, he has chronic Bipolar disorder, brought in as Moy act apparently he had an argument with his father then he took 10 sertraline, 10 trazodone and 10 tramadol to end his life. Per patient he does have a history of bipolar disorder and has a history depression with suicidal attempts in the past. Per patient she is compliant with his medications. he felt dizzy, nausea and vomit, ingestion occurred around 10 to 11 am, seen in his bedroom in Emergency room, stable no distress with sitter, as recommended by Poison control he will need to be observed for six hours and consult psychiatry. as discussed with Doctor Raleigh Madison the patient is ready for discharge from Psychiatry specialist standpoint, but his CK level was worsening yesterday, CK level 598 okay to discharge home. Assessment and Plan Intentional Drug Overdose, LFTs within normal limits, ECG sinus rhythm with no sign of acute ischemia or arrhythmia Patient to 10 tramadol, 10 trazodone, 10 sertraline at the same time an attempt to end his life. Patient was Moy acted by police. poison control who recommends at least observation for the next 4-6 hours for seizure monitoring. consult psychiatry specialist. patient stable discussed with doctor Raleigh Madison and he recommends to discharge the patient and follow with Psychiatry specialist. new CK level is 598 okay to discharge home and follow with psychiatry specialist as outpatient, the moy act was removed by Psychiatry specialist and recommended for discharge DVT prophylaxis with SCDs. Code Status Full code Discharge Planning Discharge today. Moy act removed by Psychiatry. Pt Condition on Discharge: Good Discharge Disposition: Discharge Home Discharge Time: <= 30 minutes Discharge Instructions DIET: Follow Instructions for: As Tolerated, No Restrictions Activities you can perform: Regular-No Restrictions Juwan Lafleur MD Aug 28, 2016 14:23
[2016-08-28 14:36] LABS: CKMB LESS THAN 0.5 NG/ML (0.5-3.6)
== END 2016-08-28 16:29 | disposition home or self-care (01) ==
LOC: NEPE 14:26 → NEDA 17:28 → NEPFCDU 21:27
PROVIDERS: ADMIT Internal Medicine; ATTEND Internal Medicine
DX: T43.222A Poisoning by selective serotonin reuptake inhibitors, intentional self-harm, initial encounter (principal); T43.212A Poisoning by selective serotonin and norepinephrine reuptake inhibitors, intentional self-harm, initial encounter; T40.4X2A Poisoning by other synthetic narcotics, intentional self-harm, initial encounter; F31.9 Bipolar disorder, unspecified; F17.200 Nicotine dependence, unspecified, uncomplicated
CPT/HCPCS: 80048; 80053; 80076; 80307; 81001; 82550; 82552; 84484; 85025; 85610; 85730; 87086; 93005; 96361; 96374; 99285; G0378; J2405; J7030

== ENCOUNTER 2016-11-22 14:54 | Emergency (ER) | payer OTHER ==
[~2016-11-22] VITALS: Ht 175.3 cm; Wt 80.0 kg
[2016-11-22 14:58] VITALS: BP 141/72; PULSE 82; RESP 20; TEMP 98.2; O2SAT 97
--- NOTE | 2016-11-22 15:01 | PD ---
HPI Chief Complaint: Medical Clearance Time Seen by Provider: 15:00 Travel History International Travel<30 days: No Contact w/Intl Traveler<30days: No Traveled to known affect area: No History of Present Illness HPI 26-year-old male is brought to the emergency department under police custody for medical clearance to be taken to penitentiary. Per police report the patient was arrested and then began banging his head on the cage inside the police car. No loss of consciousness. He has an abrasion to the left side of his forehead. The patient denies any complaints. Denies any headache, dizziness, nausea, vomiting, blurred vision, numbness or tingling, weakness. The patient denies any anticoagulation. Denies any alcohol use. States he uses marijuana occasionally. States has a history of bipolar disorder and schizophrenia for which she is prescribed lithium and Zyprexa, has not taken these medications since he was released from penitentiary one week ago. No other complaints. PFSH Past Medical History Bipolar Disorder: Yes Anxiety: Yes Depression: Yes Cardiovascular Problems: No Endocrine: No Musculoskeletal: No Neurologic: No Reproductive: No Respiratory: No Social History Alcohol Use: Yes Tobacco Use: Yes Substance Use: Yes Allergies-Medications (Allergen,Severity, Reaction): Coded Allergies: No Known Allergies (Unverified , 08/26/16) Reported Meds & Prescriptions Reported Meds & Active Scripts Active Reported Zyprexa (Olanzapine) 2.5 Mg Tab Mg PO [place] Carbonate 150 Mg Cap Mg PO Review of Systems Except as stated in HPI: all other systems reviewed are Neg Physical Exam Narrative GENERAL: Well-nourished and well-developed male patient in no acute distress who is nontoxic appearing. SKIN: Warm and dry. Abrasion to left forehead. HEAD: Normocephalic and atraumatic. EYES: No injection, drainage, or hyphema noted. PERRLA. EOMI. ENT: No nasal drainage noted. Oropharynx is clear. NECK: Supple and the trachea is midline. CARDIOVASCULAR: Regular rate and rhythm. RESPIRATORY: Breath sounds are equal bilaterally with no accessory muscle use, wheezing, rhonchi, or crackles. GASTROINTESTINAL: Abdomen is soft, non-tender, and nondistended. MUSCULOSKELETAL: No obvious deformities, swelling, cyanosis, or ecchymosis is present throughout the upper and lower extremities. Patient has full range of motion without any signs of neurovascular compromise. Strength 5/5 upper and lower extremities equal bilaterally. NEUROLOGICAL: Awake, alert, and oriented. Normal speech and gait. Cranial nerves are grossly intact. Data Data Last Documented VS Vital Signs Date Time Temp Pulse Resp B/P Pulse Ox O2 Delivery O2 Flow Rate FiO2 11/22/16 14:58 98.2 82 20 141/[address] Brain W/O Iv Contrast(Rout) (11/22/16 15:00) Tetanus/Diphtheria Tox Adult (Tetanus/Di (11/22/16 15:15) MDM Medical Decision Making Medical Screen Exam Complete: Yes Emergency Medical Condition: Yes Differential Diagnosis Minor head injury versus contusion versus abrasion versus medical clearance Narrative Course 26-year-old male presents to the emergency department for evaluation of head injury after being his head on the police car. Patient is afebrile, vital signs are stable. Tetanus vaccination is updated here in the ED. We'll do a head CT to rule out any acute intracranial pathology. The patient will be discharged under custody of law force. Head CT is negative for any acute abnormalities. Patient has remained stable without complaint while here in the emergency department. Patient is stable to be discharged under the care of law enforcement. Diagnosis Primary Impression: Forehead abrasion Qualified Code: S00.81XA - Forehead abrasion, initial encounter Patient Instructions: Abrasion (ED), General Instructions Additional Instructions: Follow-up with your Primary Care Physician. Return to the ED for any acute worsening of symptoms. Med/Other Pt SpecificInfo: No Change to Meds Disposition: [address] LAW ENFORCEMNT Condition: Stable Saloni Corley Nov 22, 2016 15:01
[2016-11-22] MEDS ORDERED: ZYPR2.5T2 PO (15:03)
[2016-11-22] MEDS ORDERED: LITH150C PO (15:03)
[2016-11-22] MEDS ORDERED: TETANUS/DIPHTHERIA TOXOID ADULT 0.5 ML VIAL IM ONE (15:15)
--- NOTE | 2016-11-22 16:25 | RADRPT ---
EXAM DATE/TIME: 11/22/2016 15:22 [facility] COMPARISON: No previous studies available for comparison. INDICATIONS : Head trauma left supra orbital abrasions. RADIATION DOSE: 56.35 CTDIvol (mGy) MEDICAL HISTORY : None SURGICAL HISTORY : None. ENCOUNTER: Initial ACUITY: 1 day PAIN SCALE: 10/10 LOCATION: cranial TECHNIQUE: Multiple contiguous axial images were obtained of the head. Using automated exposure control and adj ustment of the mA and/or kV according to patient size, radiation dose was kept as low as reasonably a chievable to obtain optimal diagnostic quality images. FINDINGS: CEREBRUM: The ventricles are normal for age. No evidence of midline shift, mass lesion, hemorrhage or acute in farction. No extra-axial fluid collections are seen. POSTERIOR FOSSA: The cerebellum and brainstem are intact. The 4th ventricle is midline. The cerebellopontine angle i s unremarkable. EXTRACRANIAL: The visualized portion of the orbits is intact. No radiopaque foreign bodies seen in the soft tissue the supraorbital region. SKULL: The calvaria is intact. No evidence of skull fracture. CONCLUSION: Negative noncontrast CT of the brain. Geovanny Cason MD on November 22, 2016 at 16:22 Board Certified Radiologist. This report was verified electronically.
[2016-11-22 17:00] VITALS: BP 140/71
== END 2016-11-22 17:26 ==
LOC: NEPC 14:54
DX: S00.81XA Abrasion of other part of head, initial encounter (principal); W22.09XA Striking against other stationary object, initial encounter; Y92.810 Car as the place of occurrence of the external cause; Z72.0 Tobacco use; Z23 Encounter for immunization
CPT/HCPCS: 70450; 90471; 90714